=== PATIENT | female | born 1995 | race African-American/Black ===

== ENCOUNTER 2016-09-13 19:38 | Emergency (ER) | payer OTHER ==
[2016-09-13 19:36] LABS: URINE SOURCE CLEAN CATCH
[2016-09-13 19:39] LABS: URINE APPEARANCE CLEAR; URINE BILIRUBIN NEG (NEG); URINE BLOOD TRACE-INTACT (NEG); URINE COLOR YELLOW; URINE GLUCOSE NEG (NORM); URINE KETONE NEG (NEG); URINE LEUKOCYTE ESTERASE 1+ (NEG); URINE NITRATE NEG (NEG); URINE PH 6.5 (5-8); URINE PROTEIN NEG (NEG); URINE UROBILINOGEN 0.2 MG/DL (NORM)
[2016-09-13 19:42] LABS: MICRO INDICATED? YES
[2016-09-13 19:45] LABS: CULTURE INDICATED? YES; URINE BACTERIA NEG (NEG); URINE MUCUS PRESENT; URINE SQUAMOUS EPITHELIAL CELL MANY /[HPF]
[2016-09-13 19:46] LABS: URINE YEAST PRESENT
== END 2016-09-13 19:58 | disposition home or self-care (01) ==
LOC: SED 19:38
PROVIDERS: Physician Assistant
DX: B37.3 Candidiasis of vulva and vagina (principal)
CPT/HCPCS: 81003; 84703; 87086; 99283

== ENCOUNTER 2016-10-05 12:24 | Emergency (ER) | payer OTHER ==
--- NOTE | ~2016-10-05 | CR2 ---
[facility]. [facility] A Service of [facility] RADIOLOGY TEXT RESULTS PATIENT: MARVA ZAMUDIO LOCATION: SED : [birth year] UNIT #: [id number] AGE: [address]: Jeferson Thakur MD SEX: F ORDER DR: [id number] [place] [id number] E MR#: [id number] Acc #: [id number] NAME: MARVA ZAMUDIO : 1995 SEX: F STUDY DATE/TIME: 10/05/2016 12:30 UNIT: SED ROOM: STUDY DESCRIPTION: CR Abdomen Acute Series Attending Physician: Jeferson Thakur M.D. Ordering Physician: Jeferson Thakur M.D. Primary Care Physician: [facility] MEDICAL IMAGING REPORT This report is preliminary unless electronic signature is present. EXAM Acute abdomen series, 10/05/2016 1230 hours HISTORY 21-year-old with complaint of abdominal pain for 1 week. Mid abdominal region. COMPARISON None. FINDINGS Upright chest demonstrates normal cardiac, mediastinal and hilar contours. The lungs are well expanded and clear. There is no effusion. Supine and upright views of the abdomen demonstrate a nonspecific bowel gas pattern without evidence of obstruction, free air or suspicious calcification. IMPRESSION 1. Normal chest. 2. No evidence of bowel distension or obstruction. No free air or suspicious calcification. Dictated by... Thelma Hansen M.D. THIS IS AN ELECTRONICALLY VERIFIED REPORT Thelma Hansen M.D. at 10/06/2016 9:38 AM SMM/kellen TD: 10/05/2016 20:37 [facility]. [facility] A Service [facility] RADIOLOGY TEXT RESULTS PATIENT: MARVA ZAMUDIO LOCATION: SED : [birth year] UNIT #: [id number] AGE: [address]: Jeferson Thakur MD SEX: F ORDER DR: MANAV #: [id number] MEDICAL IMAGING REPORT Page 1 of 1
[2016-10-05 11:50] LABS: URINE SOURCE CLEAN CATCH
[2016-10-05 11:56] LABS: URINE APPEARANCE HAZY; URINE BILIRUBIN NEG (NEG); URINE BLOOD NEG (NEG); URINE COLOR YELLOW; URINE GLUCOSE NEG (NORM); URINE LEUKOCYTE ESTERASE NEG (NEG); URINE NITRATE NEG (NEG); URINE PH 5.5 (5-8); URINE SPECIFIC GRAVITY >=1.030 (1.003-1.035)
[2016-10-05 11:59] LABS: URINE KETONE 2+ (NEG); URINE PROTEIN NEG (NEG)
[2016-10-05 12:02] LABS: MICRO INDICATED? YES
[2016-10-05 12:04] LABS: CULTURE INDICATED? YES; URINE BACTERIA 1+ (NEG); URINE MUCUS PRESENT; URINE RBC 0-2 /[HPF] (0-2); URINE SQUAMOUS EPITHELIAL CELL MANY /[HPF]; URINE WBC 0-2 /[HPF] (0-5)
[2016-10-05] MEDS ORDERED: BENTYL20 M1 PO (13:39)
[2016-10-05] MEDS ORDERED: ZOFRANODT PO (13:40)
== END 2016-10-05 13:45 | disposition home or self-care (01) ==
LOC: SED 12:24
PROVIDERS: Emergency Medicine
DX: R10.9 Unspecified abdominal pain (principal); E86.0 Dehydration; Z79.899 Other long term (current) drug therapy
CPT/HCPCS: 74022; 81003; 84703; 87086; 99284